=== PATIENT | male | born 1965 | race Caucasian/White ===

== ENCOUNTER 2021-02-18 06:01 | Emergency (ER) | payer OTHER, MEDICAID ==
[~2021-02-18] VITALS: Ht 170.2 cm; Wt 121.1 kg
[2021-02-18 06:12] VITALS: BP_SYST 142
[2021-02-18] MEDS ORDERED: ARIP5TAB10 PO (06:31)
[2021-02-18] MEDS ORDERED: CARB1TAB10 PO (06:31)
[2021-02-18] MEDS ORDERED: GLU500 PO (06:31)
[2021-02-18] MEDS ORDERED: TAMS-11 PO (06:31)
[2021-02-18] MEDS ORDERED: LISI20TA30 PO (06:31)
[2021-02-18] MEDS ORDERED: ROSU40TA PO (06:31)
[2021-02-18] MEDS ORDERED: ESCI20TA PO (06:31)
[2021-02-18] MEDS ORDERED: KETOROLAC TROMETHAMINE 60 MG/2 ML VIAL IM ONE ×2 (06:42→06:45)
[2021-02-18 06:51] LABS: BASOPHILS # (AUTO) 0.1 K/uL (0.0-0.2); BASOPHILS % (AUTO) 0.9 % (0.0-2.0); EOSINOPHILS # (AUTO) 0.1 K/uL (0.0-0.4); EOSINOPHILS % (AUTO) 1.2 % (0.0-4.0); HEMATOCRIT 42.7 % (36-54); LYMPHOCYTES # (AUTO) 2.6 K/uL (1.0-5.5); MEAN CORPUSCULAR HEMOGLOBIN 30 pg (27-31); MEAN CORPUSCULAR HGB CONC 33 % (32-36); MEAN CORPUSCULAR VOLUME 91 fL (79.0-98.0); MONOCYTES # (AUTO) 0.7 K/uL (0.0-1.0); MONOCYTES % (AUTO) 6.9 % (1.7-9.3); NEUTROPHILS # (AUTO) 6.6 K/uL (1.8-7.7); PLATELET COUNT (AUTO) 234 K/uL (130-430); RED BLOOD CELL COUNT(AUTO) 4.69 MIL/uL (4.2-6.2); RED CELL DISTRIBUTION WIDTH 13.4 % (9.0-15.0); WHITE BLOOD COUNT (AUTO) 10.1 K/uL (4.8-10.8)
[2021-02-18 06:56] LABS: CALCIUM 8.3 mg/dL (8.4-11.0); CREATININE 0.71 mg/dL (0.55-1.30); POTASSIUM 4.6 mmol/L (3.5-5.1)
[2021-02-18 07:02] LABS: ALBUMIN 3.3 g/dL (3.4-4.8); TOTAL BILIRUBIN 0.3 mg/dL (0.0-1.0)
[2021-02-18] MEDS ORDERED: METH-634 PO (07:35)
[2021-02-18 08:30] VITALS: BP_SYST 129
== END 2021-02-18 08:30 | disposition home or self-care (01) ==
LOC: SED 06:01
DX: R25.2 Cramp and spasm (principal); Z79.899 Other long term (current) drug therapy
CPT/HCPCS: 36415; 73590; 80053; 82550; 85025; 96372; 99284; J1885